=== PATIENT | female | born 1990 | race Two or more races ===

== ENCOUNTER 2023-09-30 11:04 | Emergency (ER) | payer MEDICAID ==
[~2023-09-30] VITALS: Ht 162.6 cm; Wt 81.8 kg
[2023-09-30 11:09] VITALS: BP 148/91; PULSE 98; RESP 18; TEMP 98.2
[2023-09-30] MEDS: KETOROLAC TROMETHAMINE 60 MG/2 ML VIAL IM ONE (12:03)
[2023-09-30] MEDS: PERTUSS(ACELL),DIPH,TET VAC/PF 0.5 ML SYRINGE IM. ONE (12:03)
[2023-09-30] MEDS ORDERED: IBUP-1492 PO (12:07)
== END 2023-09-30 12:26 | disposition home or self-care (01) ==
LOC: EMS 11:10
DX: S83.92XA Sprain of unspecified site of left knee, initial encounter (principal); S90.511A Abrasion, right ankle, initial encounter; Z88.5 Allergy status to narcotic agent; Z90.49 Acquired absence of other specified parts of digestive tract; X58.XXXA Exposure to other specified factors, initial encounter; Y93.89 Activity, other specified; Y92.89 Other specified places as the place of occurrence of the external cause; Y99.8 Other external cause status
CPT/HCPCS: 99284; 73562; 73610; 90715; 90471; 96372; J1885